=== PATIENT | female | born 1930 | race Caucasian/White ===

== ENCOUNTER 2017-09-29 21:45 | Emergency (ER) | payer MEDICARE ==
[2017-09-29] MEDS ORDERED: Bacitracin Zinc 1 Packet ONE (22:55)
[2017-09-29] MEDS ORDERED: Ibuprofen 200 MG TAB ONE (23:07)
--- NOTE | 2017-09-29 23:42 | RAD ---
LEFT SHOULDER THREE VIEWS: HISTORY: The patient fell. Post traumatic pain. COMPARISON: None. FINDINGS: The glenohumeral joint space is preserved. No fracture or dislocation. IMPRESSION: No post traumatic change. POS: [facility]
--- NOTE | 2017-09-29 23:45 | RAD ---
LEFT WRIST THREE VIEWS: HISTORY: Fall. Pain. COMPARISON: None. FINDINGS: There are degenerative changes of the first carpometacarpal joint space. There is also degenerative change involving the articulation of the trapezium and scaphoid bone. With regard to the carpal bones, no evidence of fracture. Minimal calcification of the triangular fibrocartilage complex is noted. The distal radius and ulna do not demonstrate any fracture. IMPRESSION: 1. Degenerative changes, chronic. 2. No fracture. POS: [facility]
== END 2017-09-29 23:13 | disposition home or self-care (01) ==
LOC: ERS 21:45
DX: S60.812A Abrasion of left wrist, initial encounter (principal); M25.512 Pain in left shoulder; S80.212A Abrasion, left knee, initial encounter; J44.9 Chronic obstructive pulmonary disease, unspecified; F03.90 Unspecified dementia, unspecified severity, without behavioral disturbance, psychotic disturbance, mood disturbance, and anxiety; I48.91 Unspecified atrial fibrillation; I10 Essential (primary) hypertension; Z79.899 Other long term (current) drug therapy; Z79.82 Long term (current) use of aspirin; W18.30XA Fall on same level, unspecified, initial encounter; Y93.01 Activity, walking, marching and hiking